=== PATIENT | male | born 1960 | race Caucasian/White ===

== ENCOUNTER 2024-10-19 01:17 | Inpatient (IN) | payer MEDICARE, OTHER, SELFPAY ==
[2024-10-19] VITALS (12 sets, daily range): BP systolic 99–165; BP diastolic 57–104; PULSE 73–97; RESP 14–24; TEMP 36.3–37.7; O2SAT 90–98; BMI 39.2
--- NOTE | 2024-10-19 01:17 | XRR_ITS ---
PROCEDURE INFORMATION: Exam: XR Chest Exam date and time: 10/19/2024 1:17 AM Age: 64 years old Clinical indication: Chest pressure; C/O chest pain. EMS arrival for stemi alert. ; Additional info: Cp TECHNIQUE: Imaging protocol: Radiologic exam of the chest. Views: 1 view. COMPARISON: No relevant prior studies available. FINDINGS: Lungs: Unremarkable. No consolidation. Pleural spaces: Unremarkable. No pleural effusion. No pneumothorax. Heart/Mediastinum: The heart is enlarged. Bones/joints: Unremarkable. XR/XR chest 1V portable [id number] IMPRESSION: No acute abnormality.
--- NOTE | 2024-10-19 01:18 | ECG_ITS ---
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 Measurements Intervals [place] Rate: 85 P: 49 [place]: 161 QRS: 66 QRSD: 110 T: 95 QT: 374 QTc: 446 Interpretive Statements SINUS RHYTHM WITH SINUS ARRHYTHMIA MARKED ST ELEVATION, CONSIDER INFERIOR INJURY [MARKED ST ELEVATION W/O NORMALLY INFLECTED T-WAVE IN II/aVF] ACUTE MA No previous ECG available for comparison Electronically Signed On 10-19-2024 16:43:32 CDT by Octavio Naik M.D. [id number]
--- NOTE | 2024-10-19 01:18 | W.ED.CHESTPA ---
HPI - Chest Pain General: Chief Complaint: Chest Pain Stated Complaint: Chest Pains Time Seen by Provider: 10/19/24 01:17 Source: patient and EMS Mode of arrival: EMS Limitations: no limitations History of Present Illness: 64-year-old male states he woke up roughly an hour ago with crushing chest pain along with nausea and diaphoresis. Called EMS and EMS brought him in and alerted a STEMI alert does have ST elevation in the inferior leads he has received nitro morphine and aspirin and route states he is still having pain is a 6 out of 10. Former smoker does have a history of hypertension no history of coronary artery disease. Associated symptoms: Reports dyspnea; Deny abdominal pain, fever(s), nausea or vomiting Related Data Home Medications ?Medication ?Instructions ?Recorded ?Confirmed allopurinol 300 mg tablet 300 mg PO DAILY 10/19/24 10/19/24 atorvastatin 80 mg tablet 80 mg PO DAILY 10/19/24 10/19/24 semaglutide 14 mg tablet (Rybelsus) mg PO 10/19/24 tamsulosin 0.4 mg capsule 0.4 mg PO DAILY 10/19/24 10/19/24 Allergies Allergy/AdvReac Type Severity Reaction Status Date / Time No Known Allergies Allergy Verified 10/19/24 01:35 Review of Systems Const: Denies: fever(s), chills, body aches or change in appetite ENMT: Denies: throat pain or dental pain Card: Reports: chest pain Resp: Reports: dyspnea GI: Denies: abdominal pain, nausea, vomiting or diarrhea Musc: Denies: neck pain or back pain Skin/Breast: Denies: rash Neuro: Denies: headache(s) Physical Exam Const: COMMON NORMALS: no acute distress and patient oriented x3 HENMT: COMMON NORMALS: normocephalic and atraumatic HEAD & SCALP: normocephalic and atraumatic Eye: COMMON NORMALS: conjunctivae normal CONJUNCTIVA: Yes conjunctivae normal Neck/C-Spine: COMMON NORMALS: full ROM and supple Chest: COMMONS NORMALS: normal inspection of the chest Resp: COMMON NORMALS: normal respiratory effort, No retractions, No use of accessory muscles and clear to auscultation bilaterally AUSCULTATION: clear to auscultation bilaterally Cardio: COMMON NORMALS: regular rate, regular rhythm and No murmurs present (Cardio) RATE: regular rate RHYTHM: regular rhythm GI: COMMON NORMALS: Normal to inspection, nondistended, normoactive bowel sounds present, Soft to palpation, non-tender and no masses PALPATION: Yes Soft to palpation Extremity: COMMON NORMALS: normal to inspection and full ROM Neuro: COMMON NORMALS: patient oriented x3, moves all extremities and no focal motor deficits Psych: COMMON NORMALS: mental status grossly normal, Normal thought process present and cooperative THOUGHT PROCESS: Normal thought process present Skin: COMMON NORMALS: no rashes or lesions noted and no wounds GENERAL SKIN EXAM: no rashes or lesions noted Course Vital Signs: Vital signs: Vital Signs Temperature 98.3 F 10/19/24 01:19 Pulse Rate 87 10/19/24 01:19 Respiratory Rate 17 10/19/24 01:33 Blood Pressure 165/104 10/19/24 01:19 Pulse Oximetry 97 10/19/24 01:33 Oxygen Delivery Me thod Nasal Cannula 10/19/24 01:19 Oxygen Flow Rate 3 10/19/24 01:19 MDM - Chest Pain Medical Decision Making Patient presents here by EMS with STEMI he does have ST elevation in the inferior leads. Patient given heparin and Plavix here Mine Motor Operator has been notified is going to take patient for cardiac cath Medical Records I reviewed the patient's medical records. Lab Data I reviewed the patient's lab results. 10/19/24 01:21 10/19/24 01:21 Radiology Impressions Chest X-Ray 10/19/24 01:17 IMPRESSION: No acute abnormality. Laboratory Results WBC 6.35 10^3/uL (3.29-11.43) 10/19/24 01:21 RBC 4.84 10^6/uL (3.85-5.65) 10/19/24 01:21 Hgb 14.40 g/dL (11.27-16.99) 10/19/24 01:21 Hct 44.1 % (37-53) 10/19/24 01:21 MCV 91.1 fl (82-101) 10/19/24 01:21 MCH 29.8 pg (27-33) 10/19/24 01:21 MCHC 32.7 g/dL (30-55) 10/19/24 01:21 RDW 12.9 % (12.1-15.1) 10/19/24 01:21 Plt Count 191 10^3/cmm (157-399) 10/19/24 01:21 MPV 9.9 fL (7.4-10.4) 10/19/24 01: Neut % (Auto) 56.4 % 10/19/24 01:21 Lymph % (Auto) 30.7 % 10/19/24 01:21 [place] % (Auto) 9.0 % 10/19/24 01: Eos % (Auto) 3.1 % 10/19/24 01:21 Baso % (Auto) 0.5 % 10/19/24 01: Neut # (Auto) 3.58 10^3/uL (1.8-7.7) 10/19/24 01: Lymph # (Auto) 2.0 10^3/uL (0.8-4.8) 10/19/24 01: [place] # (Auto) 0.6 10^3/uL (0.2-0.9) 10/19/24 01: Eos # (Auto) 0.2 10^3/uL (0.0-0.8) 10/19/24 01:21 Baso # (Auto) 0.0 10^3/uL (0.0-0.1) 10/19/24 01: Nucleated RBC % (auto) 0 % 10/19/24 01: Nucleated RBCs # 0.0 /100WBC 10/19/24 01:21 All radiology interpretation(s) finalized by discharge EKG Data EKG 1: I personally reviewed and interpreted this EKG as follows: EKG interpretation date: 10/19/24 EKG interpretation time: 01:15 Interpretation: nsr hr 85 st elevation ii, iii, avf stemi qrs 110 qtc 416 Discharge Plan Discharge Patient Disposition: Admitted As Inpatient Clinical Impression: ST elevation (STEMI) myocardial infarction Condition: Stable Coding Level of Care Code ED Electrical Machinist for Jerrell Hall
[2024-10-19] MEDS: ondansetron 2 mg/ML SDV 2 mL 4 MG IVP (01:26)
[2024-10-19] MEDS: heparin 5,000 unit/mL INJ 1 mL 4000 UNIT IVP (01:26)
[2024-10-19 01:27] LABS: Basophils % 0.5 %; Eosinophils # 0.2 10^3/uL (0.0-0.8); Eosinophils % 3.1 %; Hematocrit 44.1 % (37-53); Lymphocytes % 30.7 %; Mean Corpuscular HGB Conc 32.7 g/dL (30-55); Mean Corpuscular Hemoglobin 29.8 pg (27-33); Mean Corpuscular Volume 91.1 fl (82-101); Mean Platelet Volume 9.9 fL (7.4-10.4); Monocytes # 0.6 10^3/uL (0.2-0.9); Neutrophils # 3.58 10^3/uL (1.8-7.7); Neutrophils % 56.4 %; Nucleated Red Blood Cells % 0 %; Platelet Count 191 10^3/cmm (157-399); Red Blood Count 4.84 10^6/uL (3.85-5.65); Red Cell Distribution Width 12.9 % (12.1-15.1); White Blood Count 6.35 10^3/uL (3.29-11.43)
[2024-10-19] MEDS: clopidogrel 300 mg Tablet 600 MG PO (01:28)
--- NOTE | 2024-10-19 01:32 | PM.HP ---
Providers/Chief Complaint Admitting Physician: Shamar Salcido MD/ Interventional cardiology Primary Care Provider: Bret Case Chief Complaint: Chest Pains History of Present Illness Mejia Amezcua is a 64 year old male with past medical history of hypertension and no prior coronary artery disease history has presented to hospital with 1-1.5 hours of severe substernal chest pain. Associated with nausea, dyspnea and diaphoresis. EKG demonstrating acute inferior wall ST elevation [place]. Cardiac Gear Lapper activated and patient will be going for emergent coronary angiogram. Review of Systems Const: Denies: fever(s), chills, body aches or change in appetite ENMT: Denies: throat pain or dental pain Card: Reports: chest pain Resp: Reports: dyspnea GI: Denies: abdominal pain, nausea, vomiting or diarrhea Musc: Denies: neck pain or back pain Skin/Breast: Denies: rash Neuro: Denies: headache(s) Medications/Allergies Home Medications ?Medication ?Instructions ?Recorded ?Confirmed ?Last Taken ?Type tamsulosin 0.4 mg capsule 0.4 mg PO DAILY 10/19/24 10/19/24 10/18/24 History 0.4 Allergies Allergy/AdvReac Type Severity Reaction Status Date / Time No Known Allergies Allergy Verified 10/19/24 01:35 Vitals/I&O/Wt Last Vital Signs Temp 98.3 F 10/19/24 01:19 Pulse 87 10/19/24 01:19 Resp 16 10/19/24 01:19 BP 165/104 10/19/24 01:19 Pulse Ox 98 10/19/24 01:19 O2 Del Method Nasal Cannula 10/19/24 01:19 O2 Flow Rate 3 10/19/24 01:19 Weight last 48 hrs Weight 297 lb Physical Exam Narrative: GENERAL: Patient is alert, awake and oriented x3. [] NECK: No jugular vein distension. [] HEENT: No cyanosis. No icterus. No pallor. [] HEART: Regular S1 and S2. No murmur, rub or gallop. [] LUNGS: Clear to auscultate bilaterally. [] CENTRAL NERVOUS SYSTEM: Grossly nonfocal. [] EXTREMITIES: Lower extremities with 1+ edema bilaterally. Data 10/19/24 01:21 10/19/24 01:21 A&P Assessment and plan (1) ST elevation (STEMI) myocardial infarction: (2) Hypertension: Plan Patient has presented with acute inferior wall ST elevation [place]. Will be going emergently for cardiac catheterization and PCI. Has been loaded with aspirin, Plavix and heparin bolus given. Will obtain echocardiogram postprocedure. PDMP PDMP Reviewed: Not Reviewed Attestations Medical Necessity Statement*: Care expected to cross 2 midnights. Patient has presented with STEMI and will be going for emergent coronary angiogram Coding Level [facility] ST elevation (STEMI) myocardial infarction I21.3 Hypertension I10
[2024-10-19] MEDS: morphine 4 mg/mL SDV 1 mL IVP (01:33)
[2024-10-19 01:46] LABS: Troponin(5th) Baseline 13 ng/L (0-15)
[2024-10-19 01:47] LABS: Alanine Aminotransferase 64 U/L (0-41); Albumin Level 4.5 g/dL (3.5-5.2); Alkaline Phosphatase 228 U/L (40-130); Anion Gap 17.9 (5-19); Aspartate Amino Transferase 45 U/L (0-40); Blood Urea Nitrogen 20 mg/dL (8-23); Calcium 9.5 mg/dL (8.5-10.5); Carbon Dioxide 26 mmol/L (22-29); Chloride 99 mmol/L (98-107); Creatinine Clr Calc Pharmacy 80.5041; Glomerular Filtration Rate 55.2 mL/min (90-130); Glucose 150 mg/dL (65-115); Osmolality Calculated 293 mOsm/kg (285-295); Potassium 3.9 mmol/L (3.5-5.1); Sodium 139 mmol/L (136-145); Total Bilirubin 0.4 mg/dL (0.15-1.2); Total Protein 7.5 g/dL (6.6-8.7)
[2024-10-19 01:56] LABS: NT Pro B Type Natriuretic Pept < 36 pg/mL (0-125)
--- NOTE | 2024-10-19 03:11 | P.PCN_ITS ---
Procedure Note: Date of procedure: 10/19/24 Pre-procedure diagnosis: STEMI Post-procedure diagnosis: other (Total thrombotic occlusion of proximal to mid RCA) Procedure: LAD has mild to moderate luminal irregularities. Left main artery is patent. Left circumflex artery has mild to moderate luminal irregularities. RCA has total thrombotic occlusion of the proximal to mid vessel. S/p successful revascularization with 1 stent. Aspirin and plavix for atleast 1 year High intensity statin therapy Performing Provider: Shamar Salcido Estimated blood loss (mL): 10 Complications: None Condition: stable Disposition: floor Coding Level of Care Code Acute Code for [facility]
[2024-10-19] MEDS: sodium chloride 0.9% 1,000 ML 100 ML IV (03:52)
--- NOTE | 2024-10-19 07:41 | ECG_ITS ---
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 Measurements Intervals [place] Rate: 76 P: 48 [place]: 154 QRS: 55 QRSD: 121 T: -3 QT: 380 QTc: 429 Interpretive Statements SINUS RHYTHM POSSIBLE INFERIOR MYOCARDIAL INFARCTION , PROBABLY OLD [30 ms Q WAVE IN II/aVF] Compared to ECG 10/19/2024 01:15:41 Sinus arrhythmia no longer present ST (T wave) deviation no longer present Myocardial infarct finding still present Electronically Signed On 10-21-2024 08:52:17 CDT by Octavio Naik M.D. [id number] [id number]
[2024-10-19 07:57] LABS: Troponin 5 6HR 2468 ng/L (0-15); Troponin 5 6HR Delta 2455 ng/L (0-12)
--- NOTE | 2024-10-19 08:28 | USCV_ITS ---
Mejia Amezcua Age: 64 Gender: M : 1960 Exam Date: 10/19/2024 09:15 Ordering Phys: Kathy Puentes NP Technologist: STEVEN Exam Location: [facility] Indication: Stemi BP: 131 / 84 HR: 77 Rhythm: Sinus Technical Quality: Adequate MEASUREMENTS (Male / Female) Normal Values 2D ECHO LV Diastolic Diameter PLAX 6.1 cm 4.2 - 5.9 / 3.9 - 5.3 cm IVS Diastolic Thickness 1.1 cm 0.6 - 1.0 / 0.6 - 0.9 cm IVS Systolic Thickness 1.8 cm LVPW Diastolic Thickness 0.9 cm 0.6 - 1.0 / 0.6 - 0.9 cm LVPW Systolic Thickness 1.6 cm LVOT Diameter 2.3 cm LV Ejection Fraction 2D Teich 46.9 % LV Ejection Fraction MOD 4C 53.7 % LV Ejection Fraction MOD 2C 64.0 % LV Ejection Fraction 2C AL 64.0 % LA Diameter 3.5 cm RA Systolic Volume 4C AL 43.1 ml RA Systolic Volume 4C MOD 41.5 ml LA Sys Volume AL 48.6 cm cubed LA Sys Volume Index AL 17.9 cm cubed/m squared Aorta at Sinotubular Diameter 2.9 cm M-MODE LA Ao Ratio MM 1.4 AV Cusp Separation MM 2.2 cm DOPPLER AV Peak Velocity 117.0 cm/s LVOT Peak Velocity 83.0 cm/s AV Area Cont Eq vti 2.7 cm squared AV Area Cont Eq pk 2.9 cm squared MV Peak Velocity 82.0 cm/s MV Area PHT 5.9 cm squared Mitral E to A Ratio 1.1 TV Peak Velocity 101.0 cm/s TR Peak Velocity 101.0 cm/s TR Peak Gradient 4.1 mmHg TV Peak E Velocity 69.0 cm/s PV Peak Velocity 104.0 cm/s FINDINGS Left Ventricle Normal left ventricular size and systolic function, EF 64 %.no regional wall motion abnormalities. Right Ventricle Possibly normal size and ejection fraction Right Atrium Possibly of normal size Left Atrium Normal left atrial size. Mitral Valve No gross abnormalities noted Aortic Valve Minimally thickened aortic valves Tricuspid Valve Tricuspid valve not well visualized. Pulmonic Valve Pulmonic valve not well visualized. Pericardium No pericardial effusion. Aorta Normal aortic annulus size. IVC Inferior vena cava not visualized. CONCLUSIONS Normal left ventricular size and systolic function, EF 64 %.no regional wall motion abnormalities. The right-sided structures could not be visualized well. Minimally thickened aortic valves. There is no pericardial effusion. Technically difficult study because of the poor ultrasonic window. No similar previous studies are available for comparison Dr Octavio Naik MD FAC (Electronically Signed) Final Date: 20 October 2024 07:49 S
--- NOTE | 2024-10-19 09:02 | P.PN_ITS ---
<Statement entered by Shamar Salcido M.D - 10/19/24 11:38> Patient was evaluated and cared for in conjunction with an advanced practice practitioner.? I personally examined the patient and reviewed the chart and all pertinent data including imaging, telemetry, and laboratory results.? I discussed the patient in detail with the advanced practice practitioner.? Please see? their note for complete progress note, testing results and agreed upon plan of care for the patient. Subjective 2 Subjective: Patient is post RCA stent due to a STEMI in the inferior region. Overall he is doing well without signs or symptoms of heart failure. Blood pressure is stable. He denies any chest pain or shortness of breath at this time. Vitals/I&O/Wt Last Vital Signs Temp 97.7 F 10/19/24 03:53 Pulse 94 10/19/24 03:53 Resp 14 10/19/24 03:53 BP 131/84 10/19/24 03:53 Pulse Ox 90 10/19/24 03:53 O2 Del Method Nasal Cannula 10/19/24 03:53 O2 Flow Rate 3 10/19/24 01:19 Weight last 48 hrs Weight 302 lb 11.2 oz Weight 297 lb 4.8 oz Weight 297 lb Physical Exam 2 Narrative: General: No apparent distress, healthy appearing, well nourished Muskuloskeletal: Full ROM Respiratory: Normal respiratory effort, clear to auscultation bilaterally throughout all lung rivas, no use of accessory muscles Cardio: No JVD, regular rate, regular rhythm, S1 S2 normal, no murmurs GI: Normal to inspection, nondistended Extremities: Full ROM, normal, normal capillary refill, no cyanosis or edema Neuro: Alert and oriented x4, no focal motor deficits Psych: Affect normal, mental status grossly normal Skin: right radial cath site clean, dry, intact w/o evidence of hematoma Data 10/19/24 01:21 10/19/24 01:21 A&P Assessment and plan (1) ST elevation (STEMI) myocardial infarction: (2) Hypertension: Plan At this time patient is doing well. Continue plavix, aspirin, statin. Will add low dose beta locker. Echo complete will be done. Further recommendations on medication adjustments after this. PDMP PDMP Reviewed: Not Reviewed Attestations 2 Medical Necessity Statement*: Patient stay expected to cross 2 midnights due to above defined care. Coding Level of Care Code Acute Code for [facility] Diagnoses ST elevation (STEMI) myocardial infarction I21.3 Hypertension I10
[2024-10-19] MEDS: aspirin 81 mg EC Tablet PO (09:30)
[2024-10-19] MEDS: allopurinol 300 mg Tablet PO (09:30)
[2024-10-19] MEDS: atorvastatin 40 mg Tablet 80 MG PO (09:30)
[2024-10-19] MEDS: clopidogrel 75 mg Tablet PO (09:30)
[2024-10-19] MEDS: tamsulosin 0.4 mg Capsule PO (09:30)
[2024-10-19] MEDS: metoprolol succinate ER (24 HR) 25 mg Tablet 12.5 MG PO (09:32)
[2024-10-19] MEDS: acetaminophen 325 mg Tablet 650 MG PO (20:11)
[2024-10-20] VITALS (54 sets, daily range): BP systolic 95–126; BP diastolic 56–70; PULSE 84–97; RESP 15–21; TEMP 36.6–37.1; O2SAT 90–97
[2024-10-20 04:45] LABS: Basophils % 0.5 %; Eosinophils # 0.2 10^3/uL (0.0-0.8); Eosinophils % 2.7 %; Hematocrit 40.6 % (37-53); Lymphocytes % 26.1 %; Mean Corpuscular Hemoglobin 29.5 pg (27-33); Mean Corpuscular Volume 95.1 fl (82-101); Mean Platelet Volume 10.2 fL (7.4-10.4); Monocytes # 0.6 10^3/uL (0.2-0.9); Neutrophils % 62.4 %; Nucleated Red Blood Cells % 0 %; Platelet Count 190 10^3/cmm (157-399); Red Blood Count 4.27 10^6/uL (3.85-5.65); Red Cell Distribution Width 13.2 % (12.1-15.1); White Blood Count 7.52 10^3/uL (3.29-11.43)
[2024-10-20 05:08] LABS: Blood Urea Nitrogen 13 mg/dL (8-23); Calcium 9.1 mg/dL (8.5-10.5); Carbon Dioxide 30 mmol/L (22-29); Chloride 102 mmol/L (98-107); Creatinine Clr Calc Pharmacy 95.6158; Glucose 124 mg/dL (65-115); Osmolality Calculated 292 mOsm/kg (285-295); Sodium 140 mmol/L (136-145)
[2024-10-20 05:09] LABS: Anion Gap 12.6 (5-19); Potassium 4.6 mmol/L (3.5-5.1)
[2024-10-20] MEDS: tamsulosin 0.4 mg Capsule PO (08:40)
[2024-10-20] MEDS: aspirin 81 mg EC Tablet PO (08:40)
[2024-10-20] MEDS: atorvastatin 40 mg Tablet 80 MG PO (08:40)
[2024-10-20] MEDS: metoprolol succinate ER (24 HR) 25 mg Tablet 12.5 MG PO (08:40)
[2024-10-20] MEDS: clopidogrel 75 mg Tablet PO (08:40)
[2024-10-20] MEDS: allopurinol 300 mg Tablet PO (08:40)
--- NOTE | 2024-10-20 09:14 | P.DS_ITS ---
Discharge Providers Date of Admission: 10/19/24 03:23 Date of Discharge: October 20, 2024 Attending Provider at Admission: Shamar Salcido M.D Attending Provider at Discharge: Shamar Salcido M.D Primary Care Provider: Bret Case Diagnoses at Discharge Discharge Diagnosis (1) ST elevation (STEMI) myocardial infarction: Status: Acute (2) Hypertension: Status: Acute Reason for Visit Reason for Visit: Chest Pains Brief History: Mejia Amezcua is a 64 year old male with past medical history of hypertension and no prior coronary artery disease history has presented to hospital with 1-1.5 hours of severe substernal chest pain. Associated with nausea, dyspnea and diaphoresis. EKG demonstrating acute inferior wall ST elevation [place]. Cardiac Leaflet Distributor activated and patient will went for emergent coronary angiogram. Hospital Course Hospital Course Patient went to the sleep lab technician emergently. LAD has mild to moderate luminal irregularities. Left main artery is patent. Left circumflex artery has mild to moderate luminal irregularities. RCA has total thrombotic occlusion of the proximal to mid vessel. S/p successful revascularization with 1 stent. Patient did well post cath without complications. He was discharged home in stable to improved condition. Physical Exam Narrative: General: No apparent distress, healthy appearing, well nourished Muskuloskeletal: Full ROM Respiratory: Normal respiratory effort, clear to auscultation bilaterally throughout all lung rivas, no use of accessory muscles Cardio: No JVD, regular rate, regular rhythm, S1 S2 normal, no murmurs GI: Normal to inspection, nondistended Extremities: Full ROM, normal, normal capillary refill, no cyanosis or edema Neuro: Alert and oriented x4, no focal motor deficits Psych: Affect normal, mental status grossly normal Skin: right radial cath site clean, dry, intact w/o evidence of hematoma Discharge Data Studies Completed and Pending Completed Studies During Hospitalization Category Date Time Status XR chest 1V portable [id number] Stat Exams 10/19/24 01:17 Completed CV. 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 Laboratory Results WBC 7.52 10^3/uL (3.29-11.43) 10/20/24 04:08 RBC 4.27 10^6/uL (3.85-5.65) 10/20/24 04:08 Hgb 12.60 g/dL (11.27-16.99) 10/20/24 04:08 Hct 40.6 % (37-53) 10/20/24 04:08 MCV 95.1 fl (82-101) 10/20/24 04:08 MCH 29.5 pg (27-33) 10/20/24 04:08 MCHC 31.0 g/dL (30-55) D 10/20/24 04:08 RDW 13.2 % (12.1-15.1) 10/20/24 04:08 Plt Count 190 10^3/cmm (157-399) 10/20/24 04:08 MPV 10.2 fL (7.4-10.4) 10/20/24 04:08 Neut % (Auto) 62.4 % 10/20/24 04:08 Lymph % (Auto) 26.1 % 10/20/24 04:08 [place] % (Auto) 8.0 % 10/20/24 04:08 Eos % (Auto) 2.7 % 10/20/24 04:08 Baso % (Auto) 0.5 % 10/20/24 04:08 Neut # (Auto) 4.70 10^3/uL (1.8-7.7) 10/20/24 04:08 Lymph # (Auto) 2.0 10^3/uL (0.8-4.8) 10/20/24 04:08 [place] # (Auto) 0.6 10^3/uL (0.2-0.9) 10/20/24 04:08 Eos # (Auto) 0.2 10^3/uL (0.0-0.8) 10/20/24 04:08 Baso # (Auto) 0.0 10^3/uL (0.0-0.1) 10/20/24 04:08 Nucleated RBC % (auto) 0 % 10/20/24 04:08 Nucleated RBCs # 0.0 /100WBC 10/20/24 04:08 Sodium 140 mmol/L (136-145) 10/20/24 04:08 Potassium 4.6 mmol/L (3.5-5.1) 10/20/24 04:08 Chloride 102 mmol/L (98-107) 10/20/24 04:08 Carbon Dioxide 30 mmol/L (22-29) H 10/20/24 04:08 Anion Gap 12.6 (5-19) 10/20/24 04:08 BUN 13 mg/dL (8-23) 10/20/24 04:08 Creatinine 1.1 mg/dL (0.7-1.2) 10/20/24 04:08 GFR Calculation 67.0 mL/min (90-130) L 10/20/24 04:08 Glucose 124 mg/dL (65-115) H 10/20/24 04:08 Calculated Osmolality 292 mOsm/kg (285-295) 10/20/24 04:08 Calcium 9.1 mg/dL (8.5-10.5) 10/20/24 04:08 Total Bilirubin 0.4 mg/dL (0.15-1.2) 10/19/24 01:21 AST 45 U/L (0-40) H 10/19/24 01:21 ALT 64 U/L (0-41) H 10/19/24 01:21 Alkaline Phosphatase 228 U/L (40-130) H 10/19/24 01:21 Troponin T Baseline 13 ng/L (0-15) 10/19/24 01:21 Troponin T Hi Sens 6Hr 2468 ng/L (0-15) H 10/19/24 07:03 Troponin T Hi Sens 6Hr Delta 2455 ng/L (0-12) H* 10/19/24 07:03 NT-Pro-B Natriuret Pep < 36 pg/mL (0-125) 10/19/24 01:21 Total Protein 7.5 g/dL (6.6-8.7) 10/19/24 01:21 Albumin 4.5 g/dL (3.5-5.2) 10/19/24 01:21 Globulin 3.0 g/dL (1.3-4.6) 10/19/24 01:21 Procedures Performed LAD has mild to moderate luminal irregularities. Left main artery is patent. Left circumflex artery has mild to moderate luminal irregularities. RCA has total thrombotic occlusion of the proximal to mid vessel. S/p successful revascularization with 1 stent. Vitals Last Vital Signs Temp 97.8 F 10/20/24 07:21 Pulse 90 10/20/24 07:21 Resp 21 H 10/20/24 07:21 BP 126/70 10/20/24 07:21 Pulse Ox 97 10/20/24 07:21 O2 Del Method Room Air 10/20/24 07:21 O2 Flow Rate 1 10/19/24 16:00 Discharge Plan Discharge Patient Disposition: Home Condition: Stable Prescriptions: New clopidogrel 75 mg Tablet 75 mg PO DAILY Qty: 90 3RF aspirin 81 mg Tablet,Delayed Release (Dr/Ec) 81 mg PO DAILY Qty: 90 3RF nitroglycerin 0.4 mg Tablet, Sublingual 0.4 mg sublingual Q5M PRN (Reason: Chest Pain) Qty: 25 0RF metoprolol succinate 25 mg Tablet Extended Release 24 Hr 12.5 mg PO DAILY Qty: 30 0RF atorvastatin [Lipitor] 80 mg tablet 80 mg PO DAILY Qty: 30 0RF Continued tamsulosin 0.4 mg Capsule 0.4 mg PO DAILY Rybelsus 14 mg tablet 14 mg PO DAILY allopurinol 300 mg Tablet 300 mg PO DAILY Discontinued atorvastatin 80 mg Tablet 80 mg PO DAILY Discharge Orders: Discharge Order (Routine); Ordered 10/20/24 Ordered By: Kathy Puentes Referrals: Bret Case [Primary Care Provider] - 10/26/24 11:00 am Flori Tyson FNP [Nurse Practitioner] - 10/28/24 2:30 pm Patient Instructions: Metoprolol (By mouth) (Lopressor, Toprol XL), Aspirin (By mouth), Atorvastatin (By mouth) (Lipitor, Atorvaliq), Clopidogrel (By mouth) (Plavix), Clopidogrel (By mouth), Coronary Angioplasty (DC), Heart Healthy Diet (DC), Hypertension (DC), Heart Catheterization (DC), Opioid Safety, Post Angiogram Home Care Instructions Activity Restrictions/Additional Instructions: Discussed with patient no heavy lifting more than a gallon of milk for 3 days[address] No driving for 1 day. Monitor for and report signs or symptoms of bleeding. Monitor for and report s/s of infection such as fever 101 or greater, swelling, redness or pain to the wrist. Plan of Treatment: Patient will follow-up in the clinic in 1 week with BMP to evaluate renal function. Continue aspirin and Plavix for at least 1 year. Continue high intensity statin therapy with atorvastatin 80 mg. Continue low-dose beta- ramy. Patient will need stress test on outpatient basis to verify that other vessels do not have significant stenosis. Discharge Attestations Time Spent in Discharge Care*: less than 30 min Quality Metrics Clinical Quality Measures [ No reported AMI, CVA or VTE this stay] Coding Level of Care Code Acute Code for [facility] Diagnoses ST elevation (STEMI) myocardial infarction I21.3 Hypertension I10
--- NOTE | 2024-10-20 10:23 | PC.NURSE ---
Discharge Note Patient discharged to home via private vehicle accompanied by . Discharge instructions reviewed with patient and/or containers sales representative. Mobile pharmacy medications and/or prescriptions provided. Belongings/home medications returned. Educated patient on cardiac diet and keeping a blood pressure and pulse log for his follow up with his primary and LOPPER in cardiololgy. Patient and stated understanding.
== END 2024-10-20 10:27 | disposition home or self-care (01) | DRG 322 ==
LOC: ER 01:34 → CCL 01:36 → CSU 03:24
PROVIDERS: Admitting Provider Internal Medicine; Emergency Provider Emergency Medicine; PCP Family Medicine; Visit Provider Internal Medicine
PROC: 027034Z Dilation of Coronary Artery, One Artery with Drug-eluting Intraluminal Device, Percutaneous Approach (ICD-10-PCS; principal; 2024-10-19 01:45)
PROC: 027034Z Dilation of Coronary Artery, One Artery with Drug-eluting Intraluminal Device, Percutaneous Approach (ICD-10-PCS; 2024-10-19 01:45)
DX: I21.3 ST elevation (STEMI) myocardial infarction of unspecified site (principal); Z87.891 Personal history of nicotine dependence; I10 Essential (primary) hypertension; Z79.899 Other long term (current) drug therapy; I25.10 Atherosclerotic heart disease of native coronary artery without angina pectoris
CPT/HCPCS: 12345; 36415; 71045; 80048; 80053; 83880; 84484; 85025; 85347; 92978; 93005; 93306; 93454; 96374; 96375; 99152; 99153; 99285; C1725; C1753; C1769; C1874; C1887; C1894; C9600; J0461; J1644; J2250; J2270; J2405; J3010; J3490; J7030; J9999; Q9967

== ENCOUNTER → 2024-10-28 14:11 | Outpatient (BNVA) | payer MEDICARE, OTHER, SELFPAY | PROVIDERS: PCP Family Medicine; Visit Provider Nurse Practitioner Family | DX: I10 Essential (primary) hypertension (principal); Z09 Encounter for follow-up examination after completed treatment for conditions other than malignant neoplasm; E11.40 Type 2 diabetes mellitus with diabetic neuropathy, unspecified; Z79.85 Long-term (current) use of injectable non-insulin antidiabetic drugs; I25.10 Atherosclerotic heart disease of native coronary artery without angina pectoris; Z79.01 Long term (current) use of anticoagulants; Z79.82 Long term (current) use of aspirin; Z95.5 Presence of coronary angioplasty implant and graft; Z87.891 Personal history of nicotine dependence; I25.2 Old myocardial infarction | CPT/HCPCS: 36415; 80048; 99214 ==

== ENCOUNTER → 2024-12-16 13:40 | Outpatient (BNVA) | payer MEDICARE, OTHER, SELFPAY | PROVIDERS: PCP Family Medicine; Visit Provider Internal Medicine | DX: I25.10 Atherosclerotic heart disease of native coronary artery without angina pectoris (principal); I10 Essential (primary) hypertension; Z79.02 Long term (current) use of antithrombotics/antiplatelets; Z79.82 Long term (current) use of aspirin; Z87.891 Personal history of nicotine dependence; I25.2 Old myocardial infarction | CPT/HCPCS: 99213 ==

== ENCOUNTER → 2025-02-25 09:26 | Outpatient (BNVA) | payer MEDICARE, OTHER, SELFPAY | PROVIDERS: PCP Family Medicine; Visit Provider Student in an Organized Health Care Education/Training Program | DX: Z12.11 Encounter for screening for malignant neoplasm of colon (principal) | CPT/HCPCS: 99024; 99204 ==

== ENCOUNTER 2025-05-04 08:52 | Day surgery (SDC) | payer MEDICARE, OTHER, SELFPAY ==
[2025-05-04 09:03] VITALS: BMI 33.3
[2025-05-04 09:28] VITALS: BP 130/87; PULSE 85; RESP 18; TEMP 36.1; O2SAT 94
--- NOTE | 2025-05-04 09:43 | ANES.PREANE2 ---
Pre-Anesthetic Assessment Height/Weight: Height 1.85 m Weight 114.759 kg Temp Pulse Resp BP Pulse Ox O2 Del Method 97.0 F L 85 18 130/87 94 Room Air 05/04/25 09:28 05/04/25 09:28 05/04/25 09:28 05/04/25 09:28 05/04/25 09:28 05/04/25 09:28 Preop Diagnosis: screening Operation Date: 05/04/25 10:30 Proposed Procedures p Colonoscopy [id number] G0121 Z12.11(Not Applicable) - Yan Espinoza MD Was Beta Ahmet taken within 24 hours: Yes Was Clonidine taken within 24 hours: N/A Last intake: Intake Last Liquid Date 05/03/25 Last Liquid Time 22:00 Last Solid Date 05/02/25 Last Intake: 09:45 Social No alcohol and No tobacco Exam alert and oriented x 3 Airway Submandibular: within normal limits Cervical ROM: within normal limits Mallampati: Class II Dentition: full History/ROS No significant history except as noted Pulmonary None reported CV/HEM Coronary Artery Disease None reported Hepatic None reported GI None reported Metabolic Morbid [place] [facility] None reported Neuropsych None reported Anesthetic Plan ASA status: 3 Anesthesia: Anesthesia Evaluation Risk of > 500 ml blood loss (7ml/kg in children): No Medications/Allergies Home Medications ?Medication ?Instructions ?Recorded ?Confirmed ?Last Taken ?Type allopurinol 300 mg tablet 300 mg PO DAILY 10/19/24 04/28/25 05/03/25 History semaglutide 14 mg tablet (Rybelsus) 14 mg PO DAILY 10/19/24 04/28/25 05/03/25 History tamsulosin 0.4 mg capsule 0.4 mg PO DAILY 10/19/24 04/28/25 05/03/25 History aspirin 81 mg tablet,delayed 81 mg PO DAILY #90 tabs 10/20/24 04/28/25 05/02/25 Rx release clopidogrel 75 mg tablet 75 mg PO DAILY #90 tabs 10/20/24 04/28/25 04/28/25 Rx metoprolol succinate 25 mg 12.5 mg (1/2 x 25 mg) PO DAILY #30 10/20/24 04/28/25 05/04/25 Rx tablet,extended release 24 hr tabs nitroglycerin 0.4 mg sublingual 0.4 mg sublingual Q5M PRN Chest 10/20/24 05/04/25 Unknown Rx tablet Pain #25 tabs atorvastatin 80 mg tablet 80 mg PO DAILY 04/28/25 04/28/25 05/03/25 History ifhzjycb-glwt-hszru acid 400 1 tab PO DAILY 04/28/25 04/28/25 05/03/25 History mcg-lycopene 600 mcg-ginkgo 120 mg tablet (One Daily For Men 50 Plus Adv) Allergies Allergy/AdvReac Type Severity Reaction Status Date / Time No Known Allergies Allergy Verified 05/04/25 09:05 Current Medications Generic Name Dose Route Start Last Admin Trade Name Freq PRN Reason Stop Dose Admin Sodium Chloride 1,000 mls @ 15 mls/hr 05/04/25 08:58 05/04/25 09:22 Sodium Chloride 0.9% IV 05/05/25 08:57 15 mls/hr .Q24H PRN Administration COLONOSCOPY FLUIDS PFSH Anesthesia Medical History Coronary artery disease ST elevation (STEMI) myocardial infarction Social History Smoking and tobacco/nicotine status: former use of tobacco/nicotine Data Anesthesia Cardiac Studies: Echocardiogram 10/19/24
--- NOTE | 2025-05-04 10:08 | W.PM.OPSFHP ---
Same Day Surgery H&P Indication for Procedure/HPI DATE OF PROCEDURE: May 04, 2025 CHIEF COMPLAINT/INDICATIONFOR SURGICAL PROCEDURE: screening colonoscopy PREOP DIAGNOSIS: screening colonoscopy PLANNED PROCEDURE: Operation Date: 05/04/25 10:30 Proposed Procedures p Colonoscopy 25639 G0121 Z12.11(Not Applicable) - Yan Espinoza MD Medications/Allergies* Home Medications ?Medication ?Instructions ?Recorded ?Confirmed ?Type allopurinol 300 mg tablet 300 mg PO DAILY 10/19/24 04/28/25 History semaglutide 14 mg tablet (Rybelsus) 14 mg PO DAILY 10/19/24 04/28/25 History tamsulosin 0.4 mg capsule 0.4 mg PO DAILY 10/19/24 04/28/25 History atorvastatin 80 mg tablet 80 mg PO DAILY 04/28/25 04/28/25 History auqdfdja-zkyr-lwnyl acid 400 1 tab PO DAILY 04/28/25 04/28/25 History mcg-lycopene 600 mcg-ginkgo 120 mg tablet (One Daily For Men 50 Plus Adv) Allergies/Adverse Reactions Allergy/AdvReac Type Severity Reaction Status Date / Time No Known Allergies Allergy Verified 05/04/25 09:05 Current Medications: Generic Name Dose Route Start Last Admin Trade Name Freq PRN Reason Stop Dose Admin Sodium Chloride 1,000 mls @ 15 mls/hr 05/04/25 08:58 05/04/25 09:22 Sodium Chloride 0.9% IV 05/05/25 08:57 15 mls/hr .Q24H PRN Administration COLONOSCOPY FLUIDS Pertinent History/Comorbid Conditions* Medical History (Updated 10/28/24 @ 14:38 by SPRING [place]) Coronary artery disease ST elevation (STEMI) myocardial infarction Social History Smoking and tobacco/nicotine status: former use of tobacco/nicotine Pertinent Exam Findings alert, oriented x 3, clear to auscultation bilaterally, regular rate & rhythm and procedure specific exam findings abdomen soft, nt, nd Recommendations Risks and benefits of procedure reviewed and Patient/family agree to proceed Surgery/Procedure today Other Plans: I have explained the risks and benefits of a screening colonoscopy and the patient agrees to proceed. Patient is average for colon cancer. Patient understands that hemoccult is an alternative and still decides to proceed with colonoscopy. Had an extensive discussion with the patient. Answered all questions. Patient understands that the risks include a 1% risk of iatrogenic perforation and risk of aspiration. Patient understands he is at high risk MA and decides to proceed. Obtain cardiac clearance. Okay to hold Plavix. Coding Level of Care Code Acute Code for [facility] Fwd
[2025-05-04 10:27] VITALS: BP 111/65; PULSE 69; RESP 16; TEMP 36.5; O2SAT 94
[2025-05-04 11:06] VITALS: BP 133/94; PULSE 73; RESP 18; O2SAT 94
--- NOTE | 2025-05-04 11:20 | ANE.PACU2 ---
Inpatient post-anesthesia follow up: Airway intact: Yes Vital signs: Temperature 97.7 F Pulse Rate 73 Respiratory Rate 18 Blood Pressure 133/94 Pulse Oximetry 94 Oxygen Delivery Me thod Room Air Oxygen Flow Rate Fraction of Inspir ed Oxygen Hydration adequate: Yes Nausea and vomiting: No Pain level: 1 Mental status: Baseline
== END 2025-05-04 11:20 | disposition home or self-care (01) ==
PROVIDERS: PCP Family Medicine; Visit Provider Student in an Organized Health Care Education/Training Program
PROC: 0DJD8ZZ Inspection of Lower Intestinal Tract, Via Natural or Artificial Opening Endoscopic (ICD-10-PCS; CPT 45378; principal; 2025-05-04 10:30)
DX: Z12.11 Encounter for screening for malignant neoplasm of colon (principal); K57.30 Diverticulosis of large intestine without perforation or abscess without bleeding; I25.10 Atherosclerotic heart disease of native coronary artery without angina pectoris; I25.2 Old myocardial infarction; Z87.891 Personal history of nicotine dependence; E66.01 Morbid (severe) obesity due to excess calories; Z68.33 Body mass index [BMI] 33.0-33.9, adult; Z79.82 Long term (current) use of aspirin
CPT/HCPCS: 36416; 45378; 82962; J2704; J7030

== ENCOUNTER → 2025-06-16 15:10 | Outpatient (BNVA) | payer MEDICARE, OTHER, SELFPAY | PROVIDERS: PCP Family Medicine; Visit Provider Internal Medicine | DX: I25.10 Atherosclerotic heart disease of native coronary artery without angina pectoris (principal); I10 Essential (primary) hypertension; Z87.891 Personal history of nicotine dependence; I25.2 Old myocardial infarction | CPT/HCPCS: 99213 ==